=== PATIENT | female | born 1955 | race Caucasian/White ===

== ENCOUNTER 2017-01-07 19:33 | Inpatient (IN) | payer BC, OTHER ==
--- NOTE | ~2017-01-07 | IDS ---
Interim Discharge Summary [facility] [address] [place]. [address] NAME: KRISTINA ANDERSON : 53 STATUS : ADM IN PAT#: [id number] AGE: 61 ADM/REG DATE : 01/07/17 MR#: [id number] REPORT SERV DATE: 01/14/17 DICTATED BY: FLAVIO MELGAR DATE: 01/14/17 REPORT STATUS : Draft TRANSCRIBED BY: MODL DATE: 01/14/17 ADMISSION DATE: 01/07/2017 DISCHARGE DATE: Interim summary covers up to date 01/14/2017. CHIEF COMPLAINT ON ADMISSION: Right leg swelling and redness. CURRENT HOSPITAL DIAGNOSES: 1. Right lower extremity cellulitis likely strep with chronic lymphedema. 2. Massive obesity. HISTORY OF PRESENT ILLNESS: Please see full H and P by Dr. Igor Parks for details regarding initial presentation. HOSPITAL COURSE: 1. Right lower extremity cellulitis with chronic lymphedema: The patient was admitted to the hospital, started on IV antibiotics with vancomycin initially. This was transitioned to Ancef. She did have mild improvement very slowly. ID was consulted who agreed with Ancef. At this point, we are waiting to see if she improves to the point we can switch her to p.o. antibiotics versus needing home with IV antibiotics. 2. Massive obesity. We are providing supportive care at the specialty bed. 3. Obstructive sleep apnea. The patient continues on CPAP. 4. Chronic congestive heart failure without any acute exacerbations here. No echo recently done here, but has a diagnosis of chronic heart failure, probably diastolic. 5. History of asthma. No acute issues here. Has p.r.n. albuterol available. 6. Disposition : The patient is wanting to go home with possible home health. She is not interested in going to rehab. Awaiting ID input. TAMERA/UMAIR Flavio Melgar MD / [id number] CC: MD Jasvir Carr Jr., M.D.
--- NOTE | ~2017-01-07 | DS ---
Discharge Summary [facility] [address] [place]. [address] NAME: KRISTINA ANDERSON : 53 STATUS : DIS IN PAT#: [id number] AGE: 61 ADM/REG DATE : 01/07/17 MR#: [id number] REPORT SERV DATE: 01/16/17 DICTATED BY: DATE: REPORT STATUS : Draft TRANSCRIBED BY: MODL DATE: 01/15/17 ADMISSION DATE: 01/07/2017 DISCHARGE DATE: 01/15/2017 DISCHARGE DIAGNOSES: 1. Right lower extremity cellulitis/chronic lymphedema. 2. Massive obesity. 3. Congestive heart failure. No acute exacerbation. 4. Obstructive sleep apnea, chronic. CONSULTATIONS: Dr. Ricardo Zacarias, Infectious Disease. PERTINENT TEST AND PROCEDURES: Blood cultures x2 sites collected 01/07/2017. Final result; no growth at four days. CHIEF COMPLAINT UPON ADMISSION: Right leg swelling and redness. HOSPITAL COURSE: Please refer to history and physical dated 01/08/[address] Igor Parks for complete details of the patient's initial presentation upon admission and health history. Please refer to consultation dated 01/11/[address] Ricardo Zacarias, Infectious Disease, regarding additional details pertaining to evaluation and treatment of right lower extremity infections. Please refer to interim discharge summary covering dates of service between 01/08/2017 and 01/14/[address] Ford Melgar. Briefly, the patient is a 61-year-old female, who presented to the emergency department on 01/08/2017 with complaints of right leg swelling increase from baseline, redness, and heat. The patient complained of significant right leg pain exacerbated by touch, weightbearing, and ambulation. Initial evaluation indicated right leg cellulitis. The patient was admitted for further treatment to include Infectious Disease consult and IV antibiotic therapy. 1. Right lower extremity cellulitis/chronic lymphedema to bilateral extremities. Infectious Disease was consulted. Per ID, this was most likely a very chronic process rather than acute onset of Strep cellulitis. It was still believed that Strep was most likely the causative organism which just simply slowed response to treatment because of chronic nature and severity of the swelling in the lower extremities. The patient was initially started on vancomycin and was transitioned to Ancef. The patient did show very slow improvement with IV antibiotic and will be transitioned to Duricef 1000 mg p.o. twice daily for an additional 10 days of outpatient antibiotic therapy at home. The patient is currently under the outpatient care of Dr. Gardner at [facility] and received home health care wound management three times weekly which we resumed after discharge to home. Discharge Summary [facility] [address] [place]. [address] NAME: KRISTINA ANDERSON : 53 STATUS : DIS IN PAT#: [id number] AGE: 61 ADM/REG DATE : 01/07/17 MR#: [id number] REPORT SERV DATE: 01/16/17 DICTATED BY: DATE: REPORT STATUS : Draft TRANSCRIBED BY: MODL DATE: 01/15/17 2. Massive obesity. The patient's weight is 203.23 kg. BMI is 87.5. The patient received supportive care including bariatric bed during this admission. 3. History of congestive heart failure likely diastolic. There were no signs or symptoms of acute exacerbation during this admission. BUN was reported to be 17.3. 4. Obstructive sleep apnea, chronic. Continue home CPAP. DISCHARGE CONDITION: At the time of discharge, the patient is hemodynamically stable and continues to ambulate with walker. DISCHARGE DIET: Low-sodium 4 g. DISCHARGE MEDICATIONS: 1. Norvasc 10 mg p.o. daily. 2. BuSpar 15 mg p.o. twice daily. 3. Lexapro 20 mg tablet p.o. daily. 4. Pristiq 100 mg tablet p.o. daily. 5. Lasix 80 mg tablet p.o. every morning. Per review of MAR, the patient was prescribed 40 mg daily. It is unclear if the patient misunderstood dose. This will be verified prior to discharge to home. 6. Neurontin 800 mg tablet p.o. three times daily. 7. Guaifenesin 1200 mg p.o. twice daily as needed. 8. Synthroid 175 mcg p.o. daily. 9. Remeron 30 mg tablet p.o. daily at bedtime. 10.Lopressor 25 mg tablet p.o. twice daily. 11.Prilosec 40 mg tablet p.o. daily. 12.Potassium SR tablet 20 mEq p.o. daily. Hold this medication x24 hours. Then restart. Potassium 5.2 on the day of discharge. 13.Requip 3 mg p.o. daily at bedtime. 14.Roxicodone 5 mg tablet, take 20 mg p.o. scheduled every six hours for pain. 15.Colace 100 mg tablet p.o. twice daily as needed. 16.Hydrocortisone 2.5% cream applied to hemorrhoids as needed twice daily. 17.Lawrence nasal spray two to three sprays both nostrils as needed. 18.Albuterol RespiClick two puffs inhaled every four hours as needed. 19.Prenavite 1 tablet p.o. every morning. 20.MiraLAX 17 g p.o. daily. Hold for diarrhea. 21.Duricef 1000 mg p.o. b.i.d. x10 days per ID to treat cellulitis. DISCHARGE INSTRUCTIONS: The patient is to follow up with Dr. Gardner at [facility] on 01/17/2017 at 0900 hours. The patient was instructed to return to the emergency department for any acute onset of fever of 100.4 degrees or higher lasting more than one hour, intractable chills, rigors, increased swelling or redness to right lower extremity or any other concerns that are deviations from her baseline health status at the time of this discharge. PRIMARY WOUND PHYSICIAN: Shin Gardner M.D. Discharge Summary [address] [address] NAME: KRISTINA ANDERSON : 53 STATUS : DIS IN PAT#: [id number] AGE: 61 ADM/REG DATE : 01/07/17 MR#: [id number] REPORT SERV DATE: 01/16/17 DICTATED BY: DATE: REPORT STATUS : Draft TRANSCRIBED BY: UMAIR DATE: 01/15/17 PRIMARY CARE PHYSICIAN: Jasvir Ortiz M.D. Sunday/UMAIR ANA MARIA [facility] / [id number] CC: MD Jasvir Craig II, Jr., M.D.
--- NOTE | ~2017-01-07 | HP ---
History And Physical [address] [place]. [address] NAME: KRISTINA ANDERSON : 53 STATUS : ADM IN PAT#: [id number] AGE: 61 ADM/REG DATE : 01/07/17 MR#: [id number] REPORT SERV DATE: 01/08/17 DICTATED BY: SAUMYA BLANCHARD DATE: 01/08/17 REPORT STATUS : Draft TRANSCRIBED BY: MODL DATE: 01/08/17 DATE OF ADMISSION: 01/07/2017 CHIEF COMPLAINT: A 61-year-old female presenting with right leg swelling and redness. HISTORY OF PRESENTING ILLNESS: The patient's history was obtained through careful interview with the patient, coupled with review of [facility] medical records. The patient states that on 01/02/2017, she began to have "red bumps" on her right leg, but then she has noticed increasing swelling, redness, and heat on the right leg until today it became unbearable to touch. She describes right leg pain exacerbated by touching and tenderness, it gets up to 10/10 severity, but she has had no difficulty walking on it. She has chronic intermittent chest discomfort. No shortness of breath. No cough. No fevers or chills. No nausea or vomiting. She has chronic lymphedema. No abdominal distention. She describes no change of bowel or bladder habit. REVIEW OF SYSTEMS: Otherwise, a 14-point review of systems was obtained and was negative. PAST MEDICAL HISTORY: 1. COPD. 2. Congestive heart failure. 3. Lymphedema. 4. Depression and anxiety. 5. Hypothyroidism. 6. Urinary tract infection. 7. Obstructive sleep apnea, on CPAP. 8. Asthma. 9. Morbid obesity. 10.Gastritis seen by Dr. Villarreal. 11.Colon polyps. PAST SURGICAL HISTORY: Denies any. ALLERGIES: TO PENICILLIN, MACROLIDES, SULFA, FLUOROQUINOLONES, AND DEXILANT. SOCIAL HISTORY: Quit smoking. No alcohol abuse. Lives with her one son. She is single. 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 FAMILY HISTORY: Diabetes and cancer. History And Physical [address] [address] NAME: KRISTINA ANDERSON : 53 STATUS : ADM IN PAT#: [id number] AGE: 61 ADM/REG DATE : 01/07/17 MR#: [id number] REPORT SERV DATE: 01/08/17 DICTATED BY: SAUMYA BLANCHARD DATE: 01/08/17 REPORT STATUS : Draft TRANSCRIBED BY: UMAIR DATE: 01/08/17 CURRENT MEDICATIONS: 1. Albuterol inhaler. 2. Norvasc 10 mg daily. 3. BuSpar 50 mg p.o. b.i.d. 4. Pristiq 100 mg p.o. daily. 5. Lexapro 20 mg p.o. daily. 6. Lasix 80 mg p.o. daily. 7. Neurontin 800 mg p.o. three times a day. 8. Hydrocortisone cream. 9. Synthroid 175 mcg daily. 10.Lopressor 25 mg p.o. b.i.d. 11.Remeron 30 mg p.o. q.h.s. 12.Multivitamin. 13.Prilosec 40 mg p.o. daily. 14.Oxycodone 20 mg p.o. q.6 hours p.r.n. 15.Potassium 20 mEq p.o. daily. 16.Multivitamin. 17.Requip 3 mg p.o. q.h.s. nasal spray. PHYSICAL EXAMINATION: VITAL SIGNS: Temperature 98.9, pulse 86, blood pressure 149/38, respiratory rate 21, and O2 saturation 98% on 3 L nasal cannula. GENERAL: An ill-appearing female, in evidence of described distress secondary to right leg pain. HEENT: Pupils equal, round, and reactive to light. No conjunctival pallor. No scleral icterus. Nares are patent. Oropharynx is clear of obstruction. Moist mucous membranes. NECK: Trachea midline. No thyromegaly. LYMPH: No cervical lymphadenopathy. No supraclavicular lymphadenopathy. I do not appreciate right inguinal lymphadenopathy. RESPIRATORY: Clear to auscultation at bases. No wheezes, rales, or rhonchi. Normal respiratory effort. CARDIOVASCULAR: Regular rate and rhythm. No murmurs, rubs, or gallops. No extremity edema is appreciated other than chronic appearing lower extremity lymphedema that is nonpitting. ABDOMEN: Soft, nontender, and nondistended. Normal bowel sounds auscultated throughout. A central pattern of morbid obesity is appreciated. DERMATOLOGICAL: The patient's right lower extremity around the knee downward shows extensive erythema, heat, swelling, tenderness. No appreciable ulceration. No purulent drainage. No underlying fluctuance. Otherwise, warm and dry extremities. No pallor. No cyanosis. PSYCHIATRIC: Normal affect. Good mood. Alert and oriented x3. LABORATORY DATA: Lactic acid 8.7. White blood cell count 11, hemoglobin 12, hematocrit 39, and platelets 274. Sodium 139, potassium 3.8, chloride 96, bicarb 35, BUN 11, creatinine 2.93, and glucose 138. History And Physical [address] [address] NAME: KRISTINA ANDERSON : 53 STATUS : ADM IN [facility]#: [id number] AGE: 61 ADM/REG DATE : 01/07/17 MR#: [id number] REPORT SERV DATE: 01/08/17 DICTATED BY: SAUMYA BLANCHARD DATE: 01/08/17 REPORT STATUS : Draft TRANSCRIBED BY: UMAIR DATE: 01/08/17 ASSESSMENT AND PLAN: 1. Right leg cellulitis. Obtain a Wound Care consult. Place on IV vancomycin. 2. Morbid obesity. 3. Obstructive sleep apnea, on CPAP. 4. Chronic congestive heart failure. Monitor volume status closely. KPL/MODL Saumya Blanchard M.D. / [id number] CC: MD Jasvir Craig II, Jr., M.D.
--- NOTE | ~2017-01-07 | CN ---
Consultation Report [facility] [address] [place]. [address] NAME: KRISTINA ANDERSON : 53 STATUS : ADM IN PAT#: [id number] AGE: 61 ADM/REG DATE : 01/07/17 MR#: [id number] REPORT SERV DATE: 01/11/17 DICTATED BY: HAI ABBOTT DATE: 01/11/17 REPORT STATUS : Draft TRANSCRIBED BY: MODLiza DATE: 01/11/17 INFECTIOUS DISEASE CONSULT DATE OF CONSULTATION: REASON FOR REFERRAL: Evaluation and treatment of right lower extremity infection. HISTORY OF PRESENT ILLNESS: The patient is a 61-year-old female with a history of asthma, hypothyroidism, congestive heart failure, morbid obesity, lymphedema in both lower extremities that is severe, and obstructive sleep apnea. She came in on 01/07/2017 with increasing redness in her right leg. She states that several days before, she had developed some erythematous bumps on it, particularly posteriorly and then the whole leg began to turn red and become very painful and warm. She had no fever, shaking chills, other systemic symptoms. No malaise or flu-like symptoms. No history of unusual environmental exposures. She has had no fever here but did have a leukocytosis when she first came in. Cultures were checked. She was given a dose of Rocephin and then placed on Ancef and since then, the swelling has gone down. Her white blood cell count has normalized but she does not really feel like the redness is much better and the tenderness is still troubling her. PAST MEDICAL HISTORY: Otherwise unremarkable. MEDICATIONS: As mentioned, she is on Ancef. ALLERGIES: SHE REPORTS ALLERGIES TO PENICILLIN, SULFA, FLUOROQUINOLONES, AND MACROLIDES. SOCIAL HISTORY: She is living with her son. Nonsmoker. No history of alcohol or substance abuse. FAMILY HISTORY: Noncontributory. PHYSICAL EXAMINATION: GENERAL: A nontoxic adult female, in no acute distress. Alert and oriented x3. VITAL SIGNS: Her temperature is 97.8 at present with a pulse of 76, respirations 16, blood pressure is 150/65, and weight 203 kg. HEENT: Sclerae are clear. LUNGS: Clear. HEART: Regular rate and rhythm. ABDOMEN: Soft, nontender. Positive bowel sounds. EXTREMITIES: She has chronic edema in both lower extremities with thickened discolored skin on both sides in her calves consistent with early elephantiasis-like picture. The right calf is warm and tender but I do not feel any fluctuance or masses and there are no open lesions. No wounds or drainage. LABORATORY DATA: White blood cell count, when she came in, was 11.1; 8.8 when last checked on 01/09/2017; hematocrit 37.9, platelets 279, and normal differential. BUN and creatinine Consultation Report [address] [place]. [address] NAME: KRISTINA ANDERSON : 53 STATUS : ADM IN PAT#: [id number] AGE: 61 ADM/REG DATE : 01/07/17 MR#: [id number] REPORT SERV DATE: 01/11/17 DICTATED BY: HAI ABBOTT DATE: 01/11/17 REPORT STATUS : Draft TRANSCRIBED BY: UMAIR DATE: 01/11/17 are 10 and 0.86. Procalcitonin less than 0.05. Blood cultures taken at admission remain negative. IMPRESSION: I feel this is a very chronic process rather than the usual acute onset strep cellulitis but I still think the causative organism is most likely strep but just simply slow to respond because of the chronic nature of it and the severity of the swelling in her lower extremities. RECOMMENDATIONS: 1. Continue bedrest to get the swelling down. 2. I feel Ancef is the best antibiotic, so I will continue that. Finally I will follow the patient with you. 3. I appreciate very much your consulting on this patient. KILEY Hai Abbott M.D. / [id number] CC: MD Jasvir Carr Jr., M.D.
[~2017-01-07 19:33] MED LIST: B COMPLETE PO; BUSPAR10 PO; CLEOCIN300 MG PO; FERROUS SULF325 M1 PO; FOLIC PO; GARLIC PO; KLOR-CON M2020 MEQ PO; L40 PO; LEVOTHYROXIN100 MCG PO; LEXAPRO20 PO; LORTAB 5 PO; NEUR600 PO; NORV10 PO; PRILOSEC40 MG PO; PRIN10 PO; PROAIR HFA INH; VITAMIN D31000 UNIT PO; VITC500 PO
[2017-01-07 20:53] LABS: BASOPHILS 0.5 %; BASOPHILS ABSOLUTE 0.06 10/3/uL (0.0-0.16); EOSINOPHILS 3.2 %; EOSINOPHILS ABSOLUTE 0.35 10/3/uL (0.0-0.53); HEMATOCRIT 39.1 % (36.0-48.0); HEMOGLOBIN 12.3 g/dL (12.0-16.0); IMMATURE GRANULOCYTES 1.2 %; IMMATURE GRANULOCYTES ABSOLUTE 0.13 10/3/uL (0.0-0.11); LYMPHOCYTES 21.6 %; LYMPHOCYTES ABSOLUTE 2.39 10/3/uL (0.67-4.30); MEAN CORPUS HGB CONC 31.5 g/dL (32.0-36.0); MEAN CORPUSCULAR VOLUME 89.1 fL (80-100); MEAN PLATELET VOLUME 11.4 fL (9.2-13.0); MONOCYTES 7.7 %; MONOCYTES ABSOLUTE 0.85 10/3/uL (0.21-1.20); NEUTROPHILS 65.8 %; RBC DISTRIBUTION WIDTH 13.4 % (12.0-16.0); RED CELL COUNT 4.39 10/6/uL (4.0-5.6); WHITE BLOOD CELLS 11.1 10/3/uL (4.5-10.5)
[2017-01-07 20:54] LABS: MANUAL DIFF NO %; PLATELET COUNT 274 10/3/uL (150-400)
[2017-01-07 21:04] LABS: CALCIUM, SERUM 9.2 MG/DL (8.5-10.4); CHLORIDE, SERUM 96 MMOL/L (96-112); CO2 (CARBON DIOXIDE) 35 MMOL/L (24-34); CREATININE 0.93 MG/DL (0.55-1.02); GFR AFRICAN AMERICAN 76 ML/MIN (>=60); GFR NON AFRICAN AMERICAN 66 ML/MIN (>=60); GLUCOSE, SERUM 138 MG/DL (60-99); POTASSIUM, SERUM 3.8 MMOL/L (3.5-5.3); SODIUM, SERUM 139 MMOL/L (135-148)
[2017-01-07 21:06] LABS: BUN (BLOOD UREA NITROGEN) 11 MG/DL (6-23)
[2017-01-07 21:09] LABS: LACTATE 0.7 MMOL/L (0.3-2.4)
[2017-01-07 21:29] LABS: PROCALCITONIN <0.05 ng/mL (<0.5)
[2017-01-07] MEDS ORDERED: NEUR800 PO (22:36)
[2017-01-07] MEDS ORDERED: OXYCOD PO (22:36)
[2017-01-07] MEDS ORDERED: NORV10 PO (22:37)
[2017-01-07] MEDS ORDERED: LEXAPRO20 PO (22:37)
[2017-01-07] MEDS ORDERED: BUSPAR15 M1 PO (22:37)
[2017-01-07] MEDS ORDERED: PRISTIQ100 MG PO (22:38)
[2017-01-07] MEDS ORDERED: SYNTHROID175 MCG PO (22:39)
[2017-01-07] MEDS ORDERED: LOP25 PO (22:40)
[2017-01-07] MEDS ORDERED: PRENAVITE PO (22:40)
[2017-01-07] MEDS ORDERED: KDUR20 PO (22:41)
[2017-01-07] MEDS ORDERED: PRILOSEC40 MG PO (22:41)
[2017-01-07] MEDS ORDERED: L80 PO (22:41)
[2017-01-07] MEDS ORDERED: REMERON30 MG PO (22:41)
[2017-01-07] MEDS ORDERED: PROAIRRESP INH (22:42)
[2017-01-07] MEDS ORDERED: REQUIP3 PO (22:42)
[2017-01-07] MEDS ORDERED: HYDROCORTISONE30 G1 PR (22:42)
[2017-01-07] MEDS ORDERED: OCUVITE PO (22:43)
[2017-01-07] MEDS ORDERED: OCEAN NAS (22:43)
[2017-01-08 03:46] LABS: BASOPHILS 0.5 %; BASOPHILS ABSOLUTE 0.05 10/3/uL (0.0-0.16); EOSINOPHILS 3.1 %; EOSINOPHILS ABSOLUTE 0.34 10/3/uL (0.0-0.53); HEMATOCRIT 36.6 % (36.0-48.0); HEMOGLOBIN 11.6 g/dL (12.0-16.0); IMMATURE GRANULOCYTES 1.3 %; IMMATURE GRANULOCYTES ABSOLUTE 0.14 10/3/uL (0.0-0.11); LYMPHOCYTES ABSOLUTE 2.44 10/3/uL (0.67-4.30); MEAN CORPUS HGB CONC 31.7 g/dL (32.0-36.0); MEAN CORPUSCULAR HEMOGLOB 28.2 pg (26.0-34.0); MEAN CORPUSCULAR VOLUME 89.1 fL (80-100); MEAN PLATELET VOLUME 11.1 fL (9.2-13.0); MONOCYTES 8.5 %; MONOCYTES ABSOLUTE 0.94 10/3/uL (0.21-1.20); NEUTROPHILS 64.6 %; NEUTROPHILS ABSOLUTE 7.19 10/3/uL (2.02-8.40); PLATELET COUNT 279 10/3/uL (150-400); RBC DISTRIBUTION WIDTH 13.5 % (12.0-16.0); RED CELL COUNT 4.11 10/6/uL (4.0-5.6); WHITE BLOOD CELLS 11.1 10/3/uL (4.5-10.5)
[2017-01-08 03:47] LABS: MANUAL DIFF NO %
[2017-01-08 03:53] LABS: INTERNATIONAL NORMAL RATI 1.1 UNITS (-); PARTIAL THROMBO TIME 30.8 SEC (22.5-37.2); PROTIME (NOT ORD) 14.3 SEC (12.0-14.5)
[2017-01-08 04:09] LABS: A/G RATIO 0.7 (0.7-1.9); ALBUMIN 2.9 G/DL (3.5-5.0); BUN (BLOOD UREA NITROGEN) 10 MG/DL (6-23); CALCIUM, SERUM 9.3 MG/DL (8.5-10.4); CHLORIDE, SERUM 97 MMOL/L (96-112); CO2 (CARBON DIOXIDE) 33 MMOL/L (24-34); CREATININE 0.86 MG/DL (0.55-1.02); GFR AFRICAN AMERICAN 84 ML/MIN (>=60); GFR NON AFRICAN AMERICAN 72 ML/MIN (>=60); GLOBULIN 4.2 G/DL (2.5-4.1); GLUCOSE, SERUM 160 MG/DL (60-99); POTASSIUM, SERUM 3.7 MMOL/L (3.5-5.3); SGOT(AST) 13 U/L (5-40); SGPT(ALT) 16 U/L (5-65); SODIUM, SERUM 140 MMOL/L (135-148); TOTAL BILIRUBIN 1.1 MG/DL (0-1.2); TOTAL PROTEIN 7.1 G/DL (6.0-8.5)
[2017-01-08 04:42] LABS: ALKALINE PHOSPHATASE 83 U/L (45-117)
[2017-01-09 05:57] LABS: BASOPHILS 0.6 %; BASOPHILS ABSOLUTE 0.05 10/3/uL (0.0-0.16); EOSINOPHILS 4.6 %; HEMATOCRIT 37.9 % (36.0-48.0); HEMOGLOBIN 11.9 g/dL (12.0-16.0); IMMATURE GRANULOCYTES 1.7 %; IMMATURE GRANULOCYTES ABSOLUTE 0.15 10/3/uL (0.0-0.11); LYMPHOCYTES 22.3 %; LYMPHOCYTES ABSOLUTE 1.95 10/3/uL (0.67-4.30); MEAN CORPUS HGB CONC 31.4 g/dL (32.0-36.0); MEAN CORPUSCULAR HEMOGLOB 28.1 pg (26.0-34.0); MEAN CORPUSCULAR VOLUME 89.4 fL (80-100); MEAN PLATELET VOLUME 10.9 fL (9.2-13.0); MONOCYTES 5.8 %; MONOCYTES ABSOLUTE 0.51 10/3/uL (0.21-1.20); PLATELET COUNT 279 10/3/uL (150-400); RBC DISTRIBUTION WIDTH 13.7 % (12.0-16.0); RED CELL COUNT 4.24 10/6/uL (4.0-5.6); WHITE BLOOD CELLS 8.8 10/3/uL (4.5-10.5)
[2017-01-09 06:03] LABS: MANUAL DIFF NO %
[2017-01-12 05:21] LABS: BASOPHILS 0.5 %; BASOPHILS ABSOLUTE 0.04 10/3/uL (0.0-0.16); EOSINOPHILS 5.3 %; EOSINOPHILS ABSOLUTE 0.45 10/3/uL (0.0-0.53); HEMATOCRIT 36.9 % (36.0-48.0); HEMOGLOBIN 11.2 g/dL (12.0-16.0); IMMATURE GRANULOCYTES 1.9 %; IMMATURE GRANULOCYTES ABSOLUTE 0.16 10/3/uL (0.0-0.11); LYMPHOCYTES 25.2 %; LYMPHOCYTES ABSOLUTE 2.13 10/3/uL (0.67-4.30); MEAN CORPUS HGB CONC 30.4 g/dL (32.0-36.0); MEAN PLATELET VOLUME 10.4 fL (9.2-13.0); MONOCYTES ABSOLUTE 0.59 10/3/uL (0.21-1.20); NEUTROPHILS 60.1 %; NEUTROPHILS ABSOLUTE 5.09 10/3/uL (2.02-8.40); PLATELET COUNT 272 10/3/uL (150-400); RBC DISTRIBUTION WIDTH 13.4 % (12.0-16.0); WHITE BLOOD CELLS 8.5 10/3/uL (4.5-10.5)
[2017-01-12 05:22] LABS: MANUAL DIFF NO %; MEAN CORPUSCULAR VOLUME 92.3 fL (80-100)
[2017-01-12 05:43] LABS: BUN (BLOOD UREA NITROGEN) 11 MG/DL (6-23); CALCIUM, SERUM 9.6 MG/DL (8.5-10.4); CHLORIDE, SERUM 98 MMOL/L (96-112); CREATININE 1.01 MG/DL (0.55-1.02); GFR AFRICAN AMERICAN 69 ML/MIN (>=60); GFR NON AFRICAN AMERICAN 60 ML/MIN (>=60); GLUCOSE, SERUM 152 MG/DL (60-99); POTASSIUM, SERUM 4.3 MMOL/L (3.5-5.3); SODIUM, SERUM 141 MMOL/L (135-148)
[2017-01-12 05:44] LABS: CO2 (CARBON DIOXIDE) 39 MMOL/L (24-34)
[2017-01-15 06:32] LABS: BASOPHILS 0.5 %; BASOPHILS ABSOLUTE 0.04 10/3/uL (0.0-0.16); EOSINOPHILS 5.6 %; EOSINOPHILS ABSOLUTE 0.46 10/3/uL (0.0-0.53); HEMATOCRIT 37.3 % (36.0-48.0); HEMOGLOBIN 11.3 g/dL (12.0-16.0); IMMATURE GRANULOCYTES 0.6 %; IMMATURE GRANULOCYTES ABSOLUTE 0.05 10/3/uL (0.0-0.11); LYMPHOCYTES 24.9 %; LYMPHOCYTES ABSOLUTE 2.05 10/3/uL (0.67-4.30); MEAN CORPUS HGB CONC 30.3 g/dL (32.0-36.0); MEAN CORPUSCULAR HEMOGLOB 27.8 pg (26.0-34.0); MEAN CORPUSCULAR VOLUME 91.9 fL (80-100); MEAN PLATELET VOLUME 10.8 fL (9.2-13.0); MONOCYTES ABSOLUTE 0.49 10/3/uL (0.21-1.20); NEUTROPHILS 62.4 %; NEUTROPHILS ABSOLUTE 5.13 10/3/uL (2.02-8.40); PLATELET COUNT 223 10/3/uL (150-400); RBC DISTRIBUTION WIDTH 13.9 % (12.0-16.0); RED CELL COUNT 4.06 10/6/uL (4.0-5.6); WHITE BLOOD CELLS 8.2 10/3/uL (4.5-10.5)
[2017-01-15 06:35] LABS: MANUAL DIFF NO %
[2017-01-15 06:41] LABS: BUN (BLOOD UREA NITROGEN) 12 MG/DL (6-23); CALCIUM, SERUM 9.7 MG/DL (8.5-10.4); CHLORIDE, SERUM 95 MMOL/L (96-112); CO2 (CARBON DIOXIDE) 40 MMOL/L (24-34); CREATININE 0.93 MG/DL (0.55-1.02); GFR AFRICAN AMERICAN 76 ML/MIN (>=60); GFR NON AFRICAN AMERICAN 66 ML/MIN (>=60); GLUCOSE, SERUM 144 MG/DL (60-99); SODIUM, SERUM 140 MMOL/L (135-148)
[2017-01-15] MEDS ORDERED: L40 PO (10:50)
[2017-01-15] MEDS ORDERED: HUMI PO (10:57)
[2017-01-15] MEDS ORDERED: DSS PO (11:03)
[2017-01-15] MEDS ORDERED: MIRALAX POWDER1 PKT PO (11:04)
[2017-01-15] MEDS ORDERED: DURICEF PO (11:05)
[2017-01-15] MEDS ORDERED: DURICEF (11:05)
[2017-04-18] MEDS ORDERED: L40 PO (15:44)
[2017-04-18] MEDS ORDERED: LEVOTHYROXIN175 MCG PO (15:44)
[2017-04-18] MEDS ORDERED: PRILOSEC40 MG PO (15:44)
[2017-04-18] MEDS ORDERED: NORV10 PO (15:44)
[2017-04-18] MEDS ORDERED: BUSPAR15 M1 PO (15:45)
[2017-04-18] MEDS ORDERED: FLOVENT110 INH (15:45)
[2017-04-18] MEDS ORDERED: REMERON30 MG PO (15:45)
[2017-04-18] MEDS ORDERED: NEUR800 PO (15:46)
[2017-04-18] MEDS ORDERED: OXYCOD PO (15:46)
[2017-04-18] MEDS ORDERED: NYSTATPOW TOP (15:46)
[2017-04-18] MEDS ORDERED: BENTYL20 PO (15:47)
[2017-04-18] MEDS ORDERED: KDUR20 PO (15:47)
[2017-04-18] MEDS ORDERED: REQUIP3 PO (15:47)
[2017-04-18] MEDS ORDERED: ALBUTEROL0.083 % INH (15:48)
[2017-04-18] MEDS ORDERED: LEXAPRO20 PO (15:48)
[2017-04-18] MEDS ORDERED: LOP25 PO (15:48)
[2017-04-18] MEDS ORDERED: [UNRECOGNIZED DRUG - OTHER] PO (15:49)
[2017-04-18] MEDS ORDERED: DITROXL5 PO (15:49)
[2017-04-18] MEDS ORDERED: OCUVITE PO (15:49)
[2017-04-18] MEDS ORDERED: ZOFRANODT8 PO (15:58)
[2017-04-18] MEDS ORDERED: CEFT5 PO (15:59)
[2017-04-18] MEDS ORDERED: XIFAXAN550 MG PO (15:59)
[2017-04-18] MEDS ORDERED: P20 PO (15:59)
[2017-04-18] MEDS ORDERED: WELL100 PO (16:02)
[2017-04-26] MEDS ORDERED: DURICEF PO (16:59)
== END 2017-01-15 16:40 | disposition home health service (06) | DRG 603 ==
LOC: ER 19:33 → 4EA 22:35
PROVIDERS: Emergency Medicine; Hospitalist; Internal Medicine
DX: L03.115 Cellulitis of right lower limb (principal); I50.22 Chronic systolic (congestive) heart failure; Z68.45 Body mass index [BMI] 70 or greater, adult; E66.01 Morbid (severe) obesity due to excess calories; G47.33 Obstructive sleep apnea (adult) (pediatric); Z51.5 Encounter for palliative care; Z23 Encounter for immunization
CPT/HCPCS: 80048; 80053; 83036; 83605; 83735; 83880; 84145; 84443; 85025; 85347; 85610; 85730; 87040; 90686; 94640; 94660; 96365; 96366; 99284; A9270-GY; G0008; J0690; J3370

== ENCOUNTER 2017-03-12 23:59 | Emergency (ER) | payer BC, OTHER ==
[2017-03-12 21:45] LABS: BASOPHILS 0.3 %; BASOPHILS ABSOLUTE 0.03 10/3/uL (0.0-0.16); EOSINOPHILS 3.1 %; EOSINOPHILS ABSOLUTE 0.29 10/3/uL (0.0-0.53); HEMATOCRIT 39.8 % (36.0-48.0); HEMOGLOBIN 12.5 g/dL (12.0-16.0); IMMATURE GRANULOCYTES 0.2 %; IMMATURE GRANULOCYTES ABSOLUTE 0.02 10/3/uL (0.0-0.11); LYMPHOCYTES 23.6 %; LYMPHOCYTES ABSOLUTE 2.19 10/3/uL (0.67-4.30); MANUAL DIFF NO %; MEAN CORPUS HGB CONC 31.4 g/dL (32.0-36.0); MEAN PLATELET VOLUME 11.4 fL (9.2-13.0); MONOCYTES 6.9 %; MONOCYTES ABSOLUTE 0.64 10/3/uL (0.21-1.20); NEUTROPHILS 65.9 %; NEUTROPHILS ABSOLUTE 6.11 10/3/uL (2.02-8.40); PLATELET COUNT 224 10/3/uL (150-400); RBC DISTRIBUTION WIDTH 14.2 % (12.0-16.0); RED CELL COUNT 4.47 10/6/uL (4.0-5.6); WHITE BLOOD CELLS 9.3 10/3/uL (4.5-10.5)
[2017-03-12 22:01] LABS: A/G RATIO 0.7 (0.7-1.9); ALBUMIN 3.2 G/DL (3.5-5.0); BUN (BLOOD UREA NITROGEN) 10 MG/DL (6-23); CALCIUM, SERUM 9.4 MG/DL (8.5-10.4); CREATININE 0.91 MG/DL (0.55-1.02); GFR AFRICAN AMERICAN 78 ML/MIN (>=60); GFR NON AFRICAN AMERICAN 67 ML/MIN (>=60); GLOBULIN 4.4 G/DL (2.5-4.1); GLUCOSE, SERUM 140 MG/DL (60-99); POTASSIUM, SERUM 4.2 MMOL/L (3.5-5.3); SGOT(AST) 18 U/L (5-40); SGPT(ALT) 16 U/L (5-65); SODIUM, SERUM 141 MMOL/L (135-148); TOTAL PROTEIN 7.6 G/DL (6.0-8.5)
[2017-03-12 22:02] LABS: ALKALINE PHOSPHATASE 98 U/L (45-117); CHLORIDE, SERUM 105 MMOL/L (96-112); CO2 (CARBON DIOXIDE) 35 MMOL/L (24-34); TOTAL BILIRUBIN 0.4 MG/DL (0-1.2)
[~2017-03-12 23:59] MED LIST changes: +BUSPAR15 M1 PO; +DSS PO; +DURICEF; +DURICEF PO; +HUMI PO; +HYDROCORTISONE30 G1 PR; +KDUR20 PO; +L80 PO; +LOP25 PO; +MIRALAX POWDER1 PKT PO; +NEUR800 PO; +OCEAN NAS; +OCUVITE PO; +OXYCOD PO; +PRENAVITE PO; +PRISTIQ100 MG PO; +PROAIRRESP INH; +REMERON30 MG PO; +REQUIP3 PO; +SYNTHROID175 MCG PO
[2017-04-18] MEDS ORDERED: L40 PO (15:44)
[2017-04-18] MEDS ORDERED: NORV10 PO (15:44)
[2017-04-18] MEDS ORDERED: LEVOTHYROXIN175 MCG PO (15:44)
[2017-04-18] MEDS ORDERED: PRILOSEC40 MG PO (15:44)
[2017-04-18] MEDS ORDERED: FLOVENT110 INH (15:45)
[2017-04-18] MEDS ORDERED: BUSPAR15 M1 PO (15:45)
[2017-04-18] MEDS ORDERED: REMERON30 MG PO (15:45)
[2017-04-18] MEDS ORDERED: OXYCOD PO (15:46)
[2017-04-18] MEDS ORDERED: NYSTATPOW TOP (15:46)
[2017-04-18] MEDS ORDERED: NEUR800 PO (15:46)
[2017-04-18] MEDS ORDERED: REQUIP3 PO (15:47)
[2017-04-18] MEDS ORDERED: KDUR20 PO (15:47)
[2017-04-18] MEDS ORDERED: BENTYL20 PO (15:47)
[2017-04-18] MEDS ORDERED: LOP25 PO (15:48)
[2017-04-18] MEDS ORDERED: LEXAPRO20 PO (15:48)
[2017-04-18] MEDS ORDERED: ALBUTEROL0.083 % INH (15:48)
[2017-04-18] MEDS ORDERED: [UNRECOGNIZED DRUG - OTHER] PO (15:49)
[2017-04-18] MEDS ORDERED: OCUVITE PO (15:49)
[2017-04-18] MEDS ORDERED: DITROXL5 PO (15:49)
[2017-04-18] MEDS ORDERED: ZOFRANODT8 PO (15:58)
[2017-04-18] MEDS ORDERED: P20 PO (15:59)
[2017-04-18] MEDS ORDERED: CEFT5 PO (15:59)
[2017-04-18] MEDS ORDERED: XIFAXAN550 MG PO (15:59)
[2017-04-18] MEDS ORDERED: WELL100 PO (16:02)
[2017-04-26] MEDS ORDERED: DURICEF PO (16:59)
== END 2017-03-13 03:53 | disposition home or self-care (01) ==
LOC: ER 23:59
PROVIDERS: Emergency Medicine
DX: M79.605 Pain in left leg (principal); J45.909 Unspecified asthma, uncomplicated; J44.9 Chronic obstructive pulmonary disease, unspecified; I50.9 Heart failure, unspecified; E07.9 Disorder of thyroid, unspecified; Z88.0 Allergy status to penicillin; Z88.1 Allergy status to other antibiotic agents; Z88.2 Allergy status to sulfonamides; Z79.899 Other long term (current) drug therapy; Z87.891 Personal history of nicotine dependence
CPT/HCPCS: 80053; 85025; 87040; 93971; 96372; 99284; A9270-GY; J1170

== ENCOUNTER 2017-04-04 11:47 | Inpatient (IN) | payer BC, OTHER ==
--- NOTE | ~2017-04-04 | HP ---
History And Physical [address] [address] NAME: KRISTINA ANDERSON : 53 STATUS : ADM IN [facility]#: [id number] AGE: 62 ADM/REG DATE : 04/04/17 MR#: [id number] REPORT SERV DATE: 04/04/17 DICTATED BY: DARON YOUNG DATE: 04/04/17 REPORT STATUS : Draft TRANSCRIBED BY: MODL DATE: 04/04/17 DATE OF ADMISSION: 04/04/2017 HISTORY OF PRESENT ILLNESS: This is a 62-year-old woman with morbid obesity and previous history of chronic cellulitis of the lower extremities that was treated in 12/2016, who [facility] treatment. While there, the patient became hypoxic and was complaining of increasing shortness of breath and also became somewhat confused. O2 sats were in the 80s, and the patient was taken to the emergency room for further evaluation. Upon arrival to the emergency room, blood pressure was 129/85, temperature was 100.1, pulse was 80, respiratory rate was 28, and O2 sat was 100% on 4 L. ABG was done and showed a pH of 7.33, pCO2 of 59, pO2 of 63, bicarbonate of 30, O2 sat of 91% on 32% FiO2. The patient was then started on BiPAP 15/5, rate of 14, FiO2 of 50% and is now fairly comfortable, alert and awake with O2 sats in the high 90s. The patient states that she got somewhat chilled last night, but she has had no chest pain, productive cough, or diarrhea. She got no nausea, no vomiting, no documented fevers at home. Chest x-ray was done and showed mild pulmonary vascular congestion. The patient received Solu-Medrol as well as 80 mg of IV Lasix in the ER with placement of Guzman catheter. Blood cultures have been done and sent. A UA was sent and was negative. There was no evidence of pneumonia on her chest x-ray. She is currently being admitted for workup of early sepsis, source unknown and is going to the MICU. ALLERGIES: MANY AND INCLUDE PENICILLIN, WHICH SHE STATES SWELLED HER TONGUE; MACROLIDE ANTIBIOTICS, REACTION UNKNOWN; SULFA ANTIBIOTICS, REACTION UNKNOWN; ERYTHROMYCIN-BASED ANTIBIOTICS, REACTION UNKNOWN; LEVAQUIN, SAYS IT HAD MADE HER PARALYZED FOR SEVERAL DAYS; AND DEXILANT, SEVERE STOMACHACHE. HOME MEDICATIONS: Include amlodipine 10 mg daily, BuSpar 15 mg b.i.d., Bentyl 20 mg four times a day, Lexapro 20 mg daily, Lasix 40 mg daily, gabapentin 800 mg three times a day, hydrocortisone cream 2.5% p.r.n. for hemorrhoids, levothyroxine at 175 mcg daily, Lopressor 25 mg p.o. b.i.d., Remeron 30 mg daily, Ocuvite multivitamins one tablet daily, nystatin topical powder to affected areas twice daily, Prilosec 40 mg daily, Ditropan XL 5 mg p.o. daily, Roxicodone 10 mg every six hours p.r.n., Klor-Con 20 mEq p.o. daily, Requip 3 mg p.o. daily, Flovent, and albuterol. PAST MEDICAL HISTORY: Significant for: 1. Morbid obesity. 2. Obstructive sleep apnea, the patient is on CPAP. 3. Lymphedema. 4. History of congestive heart failure, type unknown. 5. Depression and anxiety. 6. Previous urinary tract infection. 7. Hypothyroidism. 8. Asthma. 9. Gastritis, sees Dr. Villarreal. 10.Colonic polyps. 11.Last admission here was in December for a right lower extremity cellulitis and chronic History And Physical [address] [address] NAME: KRISTINA ANDERSON : 53 STATUS : ADM IN [facility]#: [id number] AGE: 62 ADM/REG DATE : 04/04/17 MR#: [id number] REPORT SERV DATE: 04/04/17 DICTATED BY: DARON YOUNG DATE: 04/04/17 REPORT STATUS : Draft TRANSCRIBED BY: UMAIR DATE: 04/04/17 lymphedema, during which time she got several doses of Ancef as well as a dose of Rocephin and had no significant consequences secondary to that. SOCIAL HISTORY: She quit smoking several years ago. There is no history of any alcohol abuse. She lives with her son and grandson. She is single. 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 FAMILY HISTORY: Significant for diabetes, cancer, and hypertension. Her parents are . REVIEW OF SYSTEMS: Done and is as per history of present illness, and a further 12-point review of systems is unremarkable. PHYSICAL EXAMINATION: GENERAL: The patient now is alert and awake. She feels better on BiPAP. VITAL SIGNS: As above. O2 sat 100%; systolic blood pressure is variable anywhere from the low 90s to the one-teens; respiratory rate ranges from 18 to 22 breaths per minute and unlabored; her temp was 100, a low-grade temp. Of note, the patient also wears oxygen at home at 3 L. SKIN: Warm and dry. HEENT: The head is atraumatic and normocephalic. Pupils are sluggishly reactive. Sclerae anicteric. Conjunctivae pink. Nasal and oral mucosa examination was not done since the patient is comfortable on BiPAP, and we do not want to remove the BiPAP mask at this time. NECK: Short, rather obese and difficult to determine if she truly has JVD, but I cannot appreciate any thyromegaly or masses. LUNGS: Notable for occasional expiratory wheezes. Her lungs are markedly decreased at the bases. CARDIAC: Reveals a regular rate and rhythm with no significant murmurs. BREASTS: Symmetrical without masses. ABDOMEN: Massively obese and nondistended. Bowel sounds are present, but diminished. No organosplenomegaly is appreciated. RECTAL AND GENITAL: Deferred at this time. She has a Guzman catheter in place. EXTREMITIES: Notable for edema, lower extremities, in particular edema. Chronic changes of the posterior lower leg that show lichenification from previous infections. She does have marked erythema of the left inner thigh that is tender to touch. The peroneal area was somewhat difficult to examine in the ER, but apparently it is reported that there is an ulceration there or a wound there that will need to be further examined in the MICU and it appears that the wound is in the posterior upper thigh. NEUROLOGIC: Cranial nerves 2 through 12 are grossly intact. Motor and sensory are intact. No focal findings are noted. Pulses are palpable in the radial. Brachial pulses are difficult to palpate. Lower extremity pulses are diminished. LABORATORY DATA: Chest x-ray shows mild pulmonary vascular congestion with no infiltrates. ABG as above. White cell count is 29,000; hemoglobin is 12.6; hematocrit is 40; platelet count is 217,000. TSH is 3.4 in December. Glycosylated hemoglobin 6.3 in December. Sodium 136, potassium is 4.5, chloride 99, bicarb 31, BUN 22, creatinine is 1.09, glucose 202, calcium History And Physical [id number] [facility] [place]. [address] NAME: KRISTINA ANDERSON : 53 STATUS : ADM IN PAT#: [id number] AGE: 62 ADM/REG DATE : 04/04/17 MR#: [id number] REPORT SERV DATE: 04/04/17 DICTATED BY: DARON YOUNG DATE: 04/04/17 REPORT STATUS : Draft TRANSCRIBED BY: UMAIR DATE: 04/04/17 is 9.5. Procalcitonin is pending. Blood cultures have been sent. Urine culture, no culture needed since UA is clear. ASSESSMENT AND PLAN: 1. 62, morbidly obese female with hypercapnic-hypoxic respiratory failure, obstructive sleep apnea and early sepsis, responding to BiPAP. We will continue Flovent and albuterol. Doubt pneumonia at this time. She has never received a flu vaccine; however, she states she has had her pneumonia vaccine about three years ago. We will follow closely. 2. Source of infection may be cellulitis or whatever wound she has in the posterior thigh. Blood cultures have been sent. Have to possibly consider bacteremia. After discussion with antibiotic stewardship, we will start the patient on cefepime and vanco pending culture results. 3. Early sepsis with a borderline blood pressure, in need of multiple antibiotics. We will request PICC line. 4. Obstructive sleep apnea. Continue BiPAP. 5. Deep vein thrombosis prophylaxis will be with Lovenox. 6. GI prophylaxis with Protonix. 7. We will continue Solu-Medrol briefly and place this patient on a sliding insulin scale in the event that her blood sugars are higher. 8. We will check TSH, cardiac enzymes, and troponin to rule out the possibility of a cardiac component. If there is an indication, we will consider possible echocardiogram. The patient is in guarded condition and needs close monitoring in the ICU with a potential of further decompensation throughout the night and possible intubation. My total critical time spent with the patient at the bedside was from 12:30 to 1:15 for a total of 45 minutes of critical care time. SHAWNA/UMAIR Daron Young M.D. / [id number] CC: Manjula Guo Jr., M.D.
--- NOTE | ~2017-04-04 | DS ---
Discharge Summary [facility] [address] [place]. [address] NAME: KRISTINA ANDERSON : 53 STATUS : DIS IN PAT#: [id number] AGE: 62 ADM/REG DATE : 04/04/17 MR#: [id number] REPORT SERV DATE: 04/09/17 DICTATED BY: NEYMAR GREENWOOD DATE: 04/08/17 REPORT STATUS : Draft TRANSCRIBED BY: MODL DATE: 04/08/17 ADMISSION DATE: 04/04/2017 DISCHARGE DATE: 04/08/2017 HISTORY OF PRESENT ILLNESS: Ms. Grimaldo is a 62-year-old morbidly obese female with a history of hypothyroidism, CHF, and lymphedema who presented to the [facility] for evaluation of her lower extremity chronic cellulitis and went into acute hypoxic respiratory failure and was subsequently transferred to the emergency room and admitted to the critical care unit. For further details, please refer to the H and P dictated by Dr. Young on 04/04/2017. HOSPITAL COURSE: Upon admission, the patient was initially managed on BiPAP. The patient's symptoms significantly improved. She was subsequently transferred to the regular floor. On the regular floor, the patient has done well, was placed on steroids, and has responded significantly well to steroids. The patient has returned to her baseline. The patient is chronically on oxygen 3 L at home. She is currently on 3 L here in the hospital and saturating appropriately. Also, on presentation, the patient had a significantly elevated white blood cell count that has progressively trended down with the last WBC currently at 12.0. Given significant improvement in her presenting symptoms, given her hemodynamic stability, and given that the patient has returned to her baseline respiratory status, the patient will subsequently be discharged. The plan has been discussed with the patient who voices understanding and is agreeable with this plan. DISCHARGE DIAGNOSES: 1. [id number] respiratory failure. 2. Cellulitis, chronic. 3. Hypothyroidism. 4. Morbid obesity. 5. Congestive heart failure. 6. Lymphedema. 7. Obstructive sleep apnea. DISCHARGE MEDICATIONS: 1. BuSpar 15 mg p.o. twice a day. 2. Ceftin 500 mg p.o. twice a day for 5 days. 3. Bentyl 20 mg p.o. four times a day. 4. Lexapro 20 mg p.o. daily. 5. Furosemide 40 mg p.o. twice a day. 6. Gabapentin 800 mg p.o. three times a day. 7. Levothyroxine 175 mcg p.o. daily. 8. Remeron 30 mg p.o. daily. 9. Omeprazole 40 mg p.o. daily. 10.Requip 3 mg p.o. daily. 11.Prednisone 40 mg p.o. for four days. 12.Amlodipine 10 mg p.o. daily. 13.Lopressor 25 mg p.o. twice a day. Discharge Summary [address] [address] NAME: KRISTINA ANDERSON : 53 STATUS : DIS IN PAT#: [id number] AGE: 62 ADM/REG DATE : 04/04/17 MR#: [id number] REPORT SERV DATE: 04/09/17 DICTATED BY: NEYMAR GREENWOOD DATE: 04/08/17 REPORT STATUS : Draft TRANSCRIBED BY: UMAIR DATE: 04/08/17 14.Oxybutynin XL 5 mg p.o. daily. 15.Multivitamin one tablet. 16.Potassium chloride 20 mEq p.o. daily. DISPOSITION: The patient will be discharged home. FOLLOWUP: She will [facility] with [facility] for management of chronic cellulitis and also follow up with her primary care physician. Greater than 30 minutes were spent reviewing chart, dictation of note, providing counseling, medication reconciliation, and writing prescription. DICTATED BY: MD LÓPEZ Apple/UMAIR Neymar Greenwood MD / [id number] CC: MD Jasvir Apple Jr., M.D.
[2017-04-04 11:05] LABS: BE (BASE EXCESS) 2.6 MEQ/L (0 +/- 2.5); HEMOBLOGIN CONTENT 12.9 G/DL (12-16); INSTRUMENT SERIAL # 8087; METHEMOGLOBIN 0.3 % (0-3); O2 CONTENT 16.3 VOL% (18-24); PCO2 (CO2 TENSION) 59 MMHG (35-45); PO2 (O2 TENSION) 63 MMHG (79-93); SAMPLE Arterial; pH 7.33 (7.37-7.43)
[2017-04-04 11:06] LABS: ALLENS TEST Pos; DEVICE NC
[2017-04-04 11:08] LABS: BASOPHILS 0.1 %; BASOPHILS ABSOLUTE 0.02 10/3/uL (0.0-0.16); EOSINOPHILS 0.1 %; EOSINOPHILS ABSOLUTE 0.02 10/3/uL (0.0-0.53); HEMATOCRIT 40.3 % (36.0-48.0); HEMOGLOBIN 12.6 g/dL (12.0-16.0); IMMATURE GRANULOCYTES 0.7 %; LYMPHOCYTES 2.4 %; LYMPHOCYTES ABSOLUTE 0.71 10/3/uL (0.67-4.30); MEAN CORPUS HGB CONC 31.3 g/dL (32.0-36.0); MEAN CORPUSCULAR HEMOGLOB 28.2 pg (26.0-34.0); MEAN CORPUSCULAR VOLUME 90.2 fL (80-100); MEAN PLATELET VOLUME 11.3 fL (9.2-13.0); MONOCYTES 2.2 %; MONOCYTES ABSOLUTE 0.65 10/3/uL (0.21-1.20); NEUTROPHILS 94.5 %; NEUTROPHILS ABSOLUTE 27.51 10/3/uL (2.02-8.40); PLATELET COUNT 217 10/3/uL (150-400); RED CELL COUNT 4.47 10/6/uL (4.0-5.6)
[2017-04-04 11:10] LABS: MANUAL DIFF NO %; WHITE BLOOD CELLS 29.1 10/3/uL (4.5-10.5)
[2017-04-04 11:26] LABS: BAND NEUTROPHILS 4 %; ER DIFF TAT 0 Hrs 22 Mins; LYMPHOCYTES 8 %; LYMPHOCYTES ABSOLUTE (CALC) 2.33 10/3/uL (0.67-4.30); MONOCYTES 4 %; MONOCYTES ABSOLUTE (CALC) 1.16 10/3/uL (0.21-1.20); NEUTROPHILS ABSOLUTE (CALC) 25.61 10/3/uL (2.02-8.40); PLATELET ESTIMATE ADQ (ADEQUATE); RBC MORPHOLOGY NORM (NORMAL); SEGMENTED NEUTROPHIL (0) 84 %; TOTAL NUCLEATED CELLS 100
[2017-04-04 11:27] LABS: A/G RATIO 0.7 (0.7-1.9); ALBUMIN 3.2 G/DL (3.5-5.0); ALKALINE PHOSPHATASE 95 U/L (45-117); BUN (BLOOD UREA NITROGEN) 22 MG/DL (6-23); CALCIUM, SERUM 9.5 MG/DL (8.5-10.4); CHLORIDE, SERUM 99 MMOL/L (96-112); CO2 (CARBON DIOXIDE) 31 MMOL/L (24-34); CREATININE 1.09 MG/DL (0.55-1.02); GFR AFRICAN AMERICAN 63 ML/MIN (>=60); GFR NON AFRICAN AMERICAN 54 ML/MIN (>=60); GLOBULIN 4.8 G/DL (2.5-4.1); GLUCOSE, SERUM 202 MG/DL (60-99); POTASSIUM, SERUM 4.5 MMOL/L (3.5-5.3); SGPT(ALT) 15 U/L (5-65); SODIUM, SERUM 136 MMOL/L (135-148); TOTAL BILIRUBIN 0.7 MG/DL (0-1.2)
[2017-04-04 11:28] LABS: SGOT(AST) 18 U/L (5-40)
[2017-04-04 11:48] LABS: ASCORBIC ACID (UR NOT ORDER) NEG (NEG); BILIRUBIN, URINE NEGATIVE (NEG); ER URINALYSIS TAT 0 Hrs 08 Mins; KETONE, URINE NEGATIVE (NEG); LEUKOCYTE ESTERASE(NOT OR NEG (NEG); NITRITE (URINE) NEG (NEG); WBC (NOT ORDERED) (RFLEX) 1 (0-5)
[2017-04-04] MEDS ORDERED: HYDROCORTISONE30 G1 TOP (12:27)
[2017-04-04] MEDS ORDERED: NORV10 PO (12:29)
[2017-04-04] MEDS ORDERED: L40 PO (12:30)
[2017-04-04] MEDS ORDERED: PRILOSEC40 MG PO (12:30)
[2017-04-04] MEDS ORDERED: LEVOTHYROXIN175 MCG PO (12:30)
[2017-04-04] MEDS ORDERED: REQUIP3 PO (12:34)
[2017-04-04] MEDS ORDERED: BUSPAR15 M1 PO (12:34)
[2017-04-04] MEDS ORDERED: LOP25 PO (12:34)
[2017-04-04] MEDS ORDERED: NEUR800 PO (12:39)
[2017-04-04] MEDS ORDERED: REMERON30 MG PO (12:41)
[2017-04-04] MEDS ORDERED: DITROXL5 PO (12:43)
[2017-04-04] MEDS ORDERED: OCUVITE PO (12:43)
[2017-04-04] MEDS ORDERED: LEXAPRO20 PO (12:43)
[2017-04-04] MEDS ORDERED: BENTYL20 PO (12:43)
[2017-04-04] MEDS ORDERED: OXYCOD PO (12:46)
[2017-04-04] MEDS ORDERED: KLOR-CON M2020 MEQ PO (12:47)
[2017-04-04] MEDS ORDERED: NYSTATPOW TOP (12:49)
[2017-04-04] MEDS ORDERED: FLOVENT110 INH (12:58)
[2017-04-04] MEDS ORDERED: ALBUTEROL0.083 % INH (12:59)
[2017-04-04] MEDS ORDERED: PROAIR HFA INH (15:24)
[2017-04-04 16:09] LABS: PROCALCITONIN 26.33 ng/mL (<0.5)
[2017-04-04 16:23] LABS: ALLENS TEST Pos; BE (BASE EXCESS) 2.2 MEQ/L (0 +/- 2.5); BIPAP 15/5 cm.H2O; CARBOXYHEMOGLOBIN 1.1 % (0-3); HCO3 (ACTUAL BICARBONATE) 29.7 MEQ/L (23-27); HEMOBLOGIN CONTENT 11.8 G/DL (12-16); INSTRUMENT SERIAL # 8083; METHEMOGLOBIN 0.4 % (0-3); O2 CONTENT 16.3 VOL% (18-24); OPERATOR ID 32214; PCO2 (CO2 TENSION) 61 MMHG (35-45); PO2 (O2 TENSION) 124 MMHG (79-93); SAMPLE Arterial; pH 7.31 (7.37-7.43)
[2017-04-04 16:47] LABS: CPK (IF ELEVATED MB BANDS) 52 U/L (0-200); PHOSPHORUS, SERUM 2.5 MG/DL (2.5-4.5); TROPONIN I <0.02 NG/ML (<0.05); ULTRASENSITIVE TSH 0.863 MCIU/ML (0.358-3.740)
[2017-04-05 03:54] LABS: BE (BASE EXCESS) 3.9 MEQ/L (0 +/- 2.5); CARBOXYHEMOGLOBIN 0.7 % (0-3); HCO3 (ACTUAL BICARBONATE) 30.7 MEQ/L (23-27); INSTRUMENT SERIAL # 8083; PCO2 (CO2 TENSION) 57 MMHG (35-45); PO2 (O2 TENSION) 93 MMHG (79-93); pH 7.35 (7.37-7.43)
[2017-04-05 03:55] LABS: BIPAP 15/5 cm.H2O; HEMOBLOGIN CONTENT 11.7 G/DL (12-16); METHEMOGLOBIN 0.3 % (0-3); OPERATOR ID 23712; SAMPLE Arterial
[2017-04-05 05:14] LABS: MEAN CORPUS HGB CONC 31.6 g/dL (32.0-36.0); MEAN CORPUSCULAR HEMOGLOB 28.3 pg (26.0-34.0); MEAN CORPUSCULAR VOLUME 89.5 fL (80-100); MEAN PLATELET VOLUME 11.5 fL (9.2-13.0); PLATELET COUNT 181 10/3/uL (150-400); RBC DISTRIBUTION WIDTH 13.9 % (12.0-16.0); RED CELL COUNT 3.89 10/6/uL (4.0-5.6); WHITE BLOOD CELLS 24.4 10/3/uL (4.5-10.5)
[2017-04-05 05:21] LABS: BUN (BLOOD UREA NITROGEN) 24 MG/DL (6-23); CALCIUM, SERUM 9.4 MG/DL (8.5-10.4); CHLORIDE, SERUM 99 MMOL/L (96-112); CO2 (CARBON DIOXIDE) 31 MMOL/L (24-34); GFR AFRICAN AMERICAN 62 ML/MIN (>=60); GFR NON AFRICAN AMERICAN 53 ML/MIN (>=60); GLUCOSE, SERUM 220 MG/DL (60-99); PHOSPHORUS, SERUM 2.7 MG/DL (2.5-4.5); POTASSIUM, SERUM 3.7 MMOL/L (3.5-5.3); SODIUM, SERUM 136 MMOL/L (135-148)
[2017-04-05 05:25] LABS: HEMATOCRIT 34.8 % (36.0-48.0); MANUAL DIFF YES %
[2017-04-05 07:15] LABS: BAND NEUTROPHILS 11 %; HYPOCHROMIA 1+ (3-10/OIF) (0-2/OIF); LYMPHOCYTES 4 %; LYMPHOCYTES ABSOLUTE (CALC) 0.98 10/3/uL (0.67-4.30); MONOCYTES 5 %; MONOCYTES ABSOLUTE (CALC) 1.22 10/3/uL (0.21-1.20); PLATELET ESTIMATE ADQ (ADEQUATE); SEGMENTED NEUTROPHIL (0) 80 %; TOTAL NUCLEATED CELLS 100
[2017-04-06 06:40] LABS: HEMOGLOBIN 10.5 g/dL (12.0-16.0); MEAN CORPUS HGB CONC 31.8 g/dL (32.0-36.0); MEAN CORPUSCULAR HEMOGLOB 28.4 pg (26.0-34.0); MEAN CORPUSCULAR VOLUME 89.2 fL (80-100); MEAN PLATELET VOLUME 11.5 fL (9.2-13.0); PLATELET COUNT 171 10/3/uL (150-400); WHITE BLOOD CELLS 24.7 10/3/uL (4.5-10.5)
[2017-04-06 06:43] LABS: MANUAL DIFF YES %
[2017-04-06 06:53] LABS: BUN (BLOOD UREA NITROGEN) 27 MG/DL (6-23); CALCIUM, SERUM 9.8 MG/DL (8.5-10.4); CHLORIDE, SERUM 99 MMOL/L (96-112); CO2 (CARBON DIOXIDE) 36 MMOL/L (24-34); CREATININE 1.02 MG/DL (0.55-1.02); GFR AFRICAN AMERICAN 68 ML/MIN (>=60); GFR NON AFRICAN AMERICAN 58 ML/MIN (>=60); GLUCOSE, SERUM 180 MG/DL (60-99); PHOSPHORUS, SERUM 2.7 MG/DL (2.5-4.5); POTASSIUM, SERUM 3.8 MMOL/L (3.5-5.3); SODIUM, SERUM 139 MMOL/L (135-148)
[2017-04-06 07:12] LABS: BAND NEUTROPHILS 24 %; EOSINOPHILS 1 %; EOSINOPHILS ABSOLUTE (CALC) 0.25 10/3/uL (0.0-0.53); IMMATURE GRANS ABSOLUTE (CALC) 0.25 10/3/uL (0.0-0.11); LYMPHOCYTES 5 %; LYMPHOCYTES ABSOLUTE (CALC) 1.24 10/3/uL (0.67-4.30); METAMYELOCYTES 1 %; MONOCYTES 7 %; MONOCYTES ABSOLUTE (CALC) 1.73 10/3/uL (0.21-1.20); NEUTROPHILS ABSOLUTE (CALC) 21.24 10/3/uL (2.02-8.40); PLATELET ESTIMATE ADQ (ADEQUATE); SEGMENTED NEUTROPHIL (0) 62 %; TOTAL NUCLEATED CELLS 100
[2017-04-06 07:13] LABS: HYPOCHROMIA 1+ (3-10/OIF) (0-2/OIF); TOXIC GRANULATION 1+
[2017-04-06 07:14] LABS: POLYCHROMASIA 1+ (2-5/OIF) (0-1/OIF); TEARDROP SHAPED RBCS OCC (0-2/OIF)
[2017-04-07 07:06] LABS: BASOPHILS 0 %; EOSINOPHILS 0.1 %; EOSINOPHILS ABSOLUTE 0.01 10/3/uL (0.0-0.53); HEMATOCRIT 33.2 % (36.0-48.0); HEMOGLOBIN 10.1 g/dL (12.0-16.0); IMMATURE GRANULOCYTES 0.5 %; IMMATURE GRANULOCYTES ABSOLUTE 0.09 10/3/uL (0.0-0.11); LYMPHOCYTES 9.9 %; LYMPHOCYTES ABSOLUTE 1.83 10/3/uL (0.67-4.30); MEAN CORPUS HGB CONC 30.4 g/dL (32.0-36.0); MEAN CORPUSCULAR HEMOGLOB 27.7 pg (26.0-34.0); MEAN CORPUSCULAR VOLUME 91.2 fL (80-100); MEAN PLATELET VOLUME 11.6 fL (9.2-13.0); MONOCYTES 4.3 %; MONOCYTES ABSOLUTE 0.79 10/3/uL (0.21-1.20); NEUTROPHILS 85.2 %; NEUTROPHILS ABSOLUTE 15.83 10/3/uL (2.02-8.40); PLATELET COUNT 196 10/3/uL (150-400); RED CELL COUNT 3.64 10/6/uL (4.0-5.6); WHITE BLOOD CELLS 18.6 10/3/uL (4.5-10.5)
[2017-04-07 07:10] LABS: MANUAL DIFF NO %
[2017-04-07 07:18] LABS: BUN (BLOOD UREA NITROGEN) 28 MG/DL (6-23); CHLORIDE, SERUM 96 MMOL/L (96-112); CO2 (CARBON DIOXIDE) 37 MMOL/L (24-34); CREATININE 0.93 MG/DL (0.55-1.02); GFR AFRICAN AMERICAN 76 ML/MIN (>=60); GFR NON AFRICAN AMERICAN 65 ML/MIN (>=60); GLUCOSE, SERUM 181 MG/DL (60-99); POTASSIUM, SERUM 3.3 MMOL/L (3.5-5.3); SODIUM, SERUM 138 MMOL/L (135-148)
[2017-04-08 05:12] LABS: BASOPHILS 0.3 %; BASOPHILS ABSOLUTE 0.03 10/3/uL (0.0-0.16); EOSINOPHILS 0.4 %; EOSINOPHILS ABSOLUTE 0.05 10/3/uL (0.0-0.53); HEMATOCRIT 35.4 % (36.0-48.0); HEMOGLOBIN 10.7 g/dL (12.0-16.0); IMMATURE GRANULOCYTES 2.1 %; IMMATURE GRANULOCYTES ABSOLUTE 0.25 10/3/uL (0.0-0.11); LYMPHOCYTES 13.6 %; LYMPHOCYTES ABSOLUTE 1.63 10/3/uL (0.67-4.30); MEAN CORPUS HGB CONC 30.2 g/dL (32.0-36.0); MEAN CORPUSCULAR HEMOGLOB 27.7 pg (26.0-34.0); MEAN CORPUSCULAR VOLUME 91.7 fL (80-100); MEAN PLATELET VOLUME 11.3 fL (9.2-13.0); MONOCYTES 6.2 %; MONOCYTES ABSOLUTE 0.74 10/3/uL (0.21-1.20); NEUTROPHILS 77.4 %; NEUTROPHILS ABSOLUTE 9.25 10/3/uL (2.02-8.40); PLATELET COUNT 202 10/3/uL (150-400); RED CELL COUNT 3.86 10/6/uL (4.0-5.6)
[2017-04-08 05:15] LABS: MANUAL DIFF NO %
[2017-04-08 05:21] LABS: BUN (BLOOD UREA NITROGEN) 30 MG/DL (6-23); CALCIUM, SERUM 10.2 MG/DL (8.5-10.4); CHLORIDE, SERUM 92 MMOL/L (96-112); CO2 (CARBON DIOXIDE) 38 MMOL/L (24-34); GFR AFRICAN AMERICAN 62 ML/MIN (>=60); GFR NON AFRICAN AMERICAN 53 ML/MIN (>=60); GLUCOSE, SERUM 196 MG/DL (60-99); POTASSIUM, SERUM 3.7 MMOL/L (3.5-5.3); SODIUM, SERUM 136 MMOL/L (135-148)
[2017-04-08] MEDS ORDERED: CEFT5 PO (18:23)
[2017-04-18] MEDS ORDERED: NORV10 PO (15:44)
[2017-04-18] MEDS ORDERED: LEVOTHYROXIN175 MCG PO (15:44)
[2017-04-18] MEDS ORDERED: L40 PO (15:44)
[2017-04-18] MEDS ORDERED: PRILOSEC40 MG PO (15:44)
[2017-04-18] MEDS ORDERED: BUSPAR15 M1 PO (15:45)
[2017-04-18] MEDS ORDERED: FLOVENT110 INH (15:45)
[2017-04-18] MEDS ORDERED: REMERON30 MG PO (15:45)
[2017-04-18] MEDS ORDERED: NYSTATPOW TOP (15:46)
[2017-04-18] MEDS ORDERED: OXYCOD PO (15:46)
[2017-04-18] MEDS ORDERED: NEUR800 PO (15:46)
[2017-04-18] MEDS ORDERED: KDUR20 PO (15:47)
[2017-04-18] MEDS ORDERED: REQUIP3 PO (15:47)
[2017-04-18] MEDS ORDERED: BENTYL20 PO (15:47)
[2017-04-18] MEDS ORDERED: LOP25 PO (15:48)
[2017-04-18] MEDS ORDERED: LEXAPRO20 PO (15:48)
[2017-04-18] MEDS ORDERED: ALBUTEROL0.083 % INH (15:48)
[2017-04-18] MEDS ORDERED: DITROXL5 PO (15:49)
[2017-04-18] MEDS ORDERED: OCUVITE PO (15:49)
[2017-04-18] MEDS ORDERED: [UNRECOGNIZED DRUG - OTHER] PO (15:49)
[2017-04-18] MEDS ORDERED: ZOFRANODT8 PO (15:58)
[2017-04-18] MEDS ORDERED: P20 PO (15:59)
[2017-04-18] MEDS ORDERED: XIFAXAN550 MG PO (15:59)
[2017-04-18] MEDS ORDERED: CEFT5 PO (15:59)
[2017-04-18] MEDS ORDERED: WELL100 PO (16:02)
[2017-04-26] MEDS ORDERED: DURICEF PO (16:59)
== END 2017-04-08 19:40 | disposition home or self-care (01) | DRG 871 ==
LOC: ER 11:47 → MIC 12:44 → 7NO 04-05 13:36
PROVIDERS: Emergency Medicine; Family Medicine; Internal Medicine Critical Care Medicine; Internal Medicine Pulmonary Disease
PROC: 02HV33Z Insertion of Infusion Device into Superior Vena Cava, Percutaneous Approach (ICD-10-PCS; principal; 2017-04-04)
PROC: 4A02X4A Measurement of Cardiac Electrical Activity, Guidance, External Approach (ICD-10-PCS; 2017-04-04)
DX: A41.9 Sepsis, unspecified organism (principal); J96.01 Acute respiratory failure with hypoxia; Z68.45 Body mass index [BMI] 70 or greater, adult; N39.0 Urinary tract infection, site not specified; L03.116 Cellulitis of left lower limb; L03.115 Cellulitis of right lower limb; Z88.0 Allergy status to penicillin; Z88.2 Allergy status to sulfonamides; Z88.1 Allergy status to other antibiotic agents; Z79.899 Other long term (current) drug therapy; E66.01 Morbid (severe) obesity due to excess calories; G47.33 Obstructive sleep apnea (adult) (pediatric); I50.9 Heart failure, unspecified; F31.9 Bipolar disorder, unspecified; F41.9 Anxiety disorder, unspecified; E03.9 Hypothyroidism, unspecified; J45.909 Unspecified asthma, uncomplicated; Z86.010 Personal history of colon polyps; Z87.440 Personal history of urinary (tract) infections; Z87.891 Personal history of nicotine dependence; Z83.3 Family history of diabetes mellitus; Z80.8 Family history of malignant neoplasm of other organs or systems; Z82.49 Family history of ischemic heart disease and other diseases of the circulatory system; Z99.81 Dependence on supplemental oxygen
CPT/HCPCS: 36569; 36600; 71010; 71020; 80048; 80053; 81001; 82550; 82805; 82962; 83036; 83605; 83735; 84100; 84145; 84443; 84484; 85025; 87040; 87070; 87205; 87641; 93005; 94640; 94660; 96374; 97116-GP; 97162-GP; 99285; A9270-GY; C1751; C9113; G8978-CK-GP; G8979-CI-GP; J0692; J2920; J2930; J3370